=== PATIENT | female | born 1965 | race Native Hawaiian/Other Pacific Islander ===

== ENCOUNTER 2016-07-18 14:26 | Emergency (ER) | payer MEDICAID ==
[2016-07-18 14:37] VITALS: BP 132/78; PULSE 95; RESP 16; TEMP 97.4; O2SAT 100
--- NOTE | 2016-07-18 14:55 | ED PDOC ---
HPI: Female Pain Time Seen by Provider: 07/18/16 14:44 Chief Complaint (Nursing): Female Genitourinary History Per: Patient (states having burning with urination. states that she was here 2 weeks ago (confirmed by review of records) and was prescribed antibiotics which she says she still has. Patient states that she has been taking little bits of that prescription and this is the reason why she still has some pills left.) History/Exam Limitations: no limitations Past Medical History Reviewed: Historical Data, Nursing Documentation, Vital Signs Vital Signs: Last Vital Signs Temp 97.4 F L 07/18/16 14:31 Pulse 95 H 07/18/16 14:31 Resp 16 07/18/16 14:31 BP 132/78 07/18/16 14:31 Pulse Ox 100 07/18/16 14:31 - Medical History PMH: Depression, Personality Disorder, Schizophrenia Denies: Diabetes, Hepatitis, HIV, HTN, Seizures, Sexually Transmitted Disease - Family History Family History: States: Unknown Family Hx - Immunization History Hx Tetanus Toxoid Vaccination: No Hx Influenza Vaccination: No Hx Pneumococcal Vaccination: No - Home Medications Home Medications: Ambulatory Orders Medication Instructions Recorded Nitrofurantoin Macrocrystals 100 mg PO BID #6 cap 09/08/15 [Macrobid] Brompheniramine/Pseudoephed/Dm 10 ml PO Q6 #1 syr 09/09/15 [Bromfed Dm Cough 118 ml] Cephalexin [cephalexin] 500 mg PO BID #14 cap 12/20/15 Phenazopyridine HCl [Pyridium] 100 mg PO TID #6 tab 06/25/16 Sulfamethoxazole/Trimethoprim 1 tab PO BID 5 Days 06/25/16 [Bactrim DS 800 mg-160 mg] Phenazopyridine HCl [Pyridium] 100 mg PO TID #9 tab 07/18/16 - Allergies Allergies/Adverse Reactions: Allergies Allergy/AdvReac Type Severity Reaction Status Date / Time ciprofloxacin Allergy ITCHING Verified 06/25/16 16:41 Review of Systems ROS Statement: Except As Marked, All Systems Reviewed And Found Negative Constitutional: Negative for: Fever, Chills Gastrointestinal: Negative for: Nausea, Vomiting, Abdominal Pain Genitourinary Female: Positive for: Dysuria Musculoskeletal: Negative for: Back Pain Physical Exam - Reviewed Nursing Documentation Reviewed: Yes Vital Signs Reviewed: Yes - Physical Exam Appears: Positive for: Well, Non-toxic, No Acute Distress Head Exam: Positive for: ATRAUMATIC, NORMAL INSPECTION, NORMOCEPHALIC Skin: Positive for: Normal Color, Warm, DRY Eye Exam: Positive for: EOMI, Normal appearance, PERRL ENT: Positive for: Normal ENT Inspection Neck: Positive for: Normal, Painless ROM Cardiovascular/Chest: Positive for: Regular Rate, Rhythm Respiratory: Positive for: CNT, Normal Breath Sounds Gastrointestinal/Abdominal: Positive for: Normal Exam, Bowel Sounds, Soft Back: Positive for: Normal Inspection. Negative for: L CVA Tenderness, R CVA Tenderness Extremity: Positive for: Normal ROM Neurologic/Psych: Positive for: Alert, Oriented - ECG O2 Sat by Pulse Oximetry: 100 Disposition - Clinical Impression Clinical Impression: Dysuria - Patient ED Disposition Is Patient to be Admitted: No Doctor Will See Patient In The: Office Counseled Patient/Family Regarding: Diagnosis, Need For Followup, Rx Given - Disposition Referrals: [facility] [Outside] [facility] [Outside] [facility] [Outside] Disposition: Routine/Home Disposition Time: 15:33 Condition: STABLE Prescriptions: Phenazopyridine HCl [Pyridium] 100 mg PO TID #9 tab Instructions: Dysuria (ED) - POA Present On Arrival: None
[2016-07-18 16:00] LABS: RBC URINE 18 /hpf (0-3); URINE BILIRUBIN NEGATIVE (NEGATIVE); URINE BLOOD MODERATE (NEGATIVE); URINE COLOR YELLOW (YELLOW); URINE GLUCOSE (UA) NEG (Normal); URINE KETONE NEGATIVE (NEGATIVE); URINE LEUKOCYTE ESTERASE NEG Leu/uL (Negative); URINE PROTEIN NEGATIVE (NEGATIVE); URINE UROBILINOGEN 0.2-1.0 mg/dL (0.2-1.0); WBC URINE 1 /hpf (0-5)
== END 2016-07-18 15:53 | disposition home or self-care (01) ==
LOC: H.ER 14:26
DX: N39.0 Urinary tract infection, site not specified (principal)

== ENCOUNTER 2016-08-20 09:12 | Emergency (ER) | payer MEDICAID ==
[2016-08-20 09:21] VITALS: BP 144/86; PULSE 92; RESP 19; TEMP 98.5; O2SAT 99
--- NOTE | 2016-08-20 09:37 | ED PDOC ---
HPI: General Adult Time Seen by Provider: 08/20/16 09:30 Chief Complaint (Nursing): Female Genitourinary Chief Complaint (Provider): dysuria History Per: Patient History/Exam Limitations: no limitations Additional Complaint(s): 51yo female Hx UTI comes to the ED complaining of dysuria for 3 days. No abdominal pain, back pain, chills, cough, congestion, rash. Admits she's been here many times for this complaint and has not followed up with [facility] or our clinic for further care after previous ED visits. PMD: none Past Medical History Reviewed: Historical Data, Nursing Documentation, Vital Signs Vital Signs: Last Vital Signs Temp 98.5 F 08/20/16 09:20 Pulse 92 H 08/20/16 09:20 Resp 19 08/20/16 09:20 BP 144/86 08/20/16 09:20 Pulse Ox 99 08/20/16 09:43 - Medical History PMH: Depression, Personality Disorder, Schizophrenia Denies: Diabetes, Hepatitis, HIV, HTN, Seizures, Sexually Transmitted Disease Other PMH: UTI - Family History Family History: States: Unknown Family Hx - Immunization History Hx Tetanus Toxoid Vaccination: No Hx Influenza Vaccination: No Hx Pneumococcal Vaccination: No - Home Medications Home Medications: Ambulatory Orders Medication Instructions Recorded Nitrofurantoin Macrocrystals 100 mg PO BID #6 cap 09/08/15 [Macrobid] Brompheniramine/Pseudoephed/Dm 10 ml PO Q6 #1 syr 09/09/15 [Bromfed Dm Cough 118 ml] Cephalexin [cephalexin] 500 mg PO BID #14 cap 12/20/15 Phenazopyridine HCl [Pyridium] 100 mg PO TID #6 tab 06/25/16 Sulfamethoxazole/Trimethoprim 1 tab PO BID 5 Days 06/25/16 [Bactrim DS 800 mg-160 mg] Phenazopyridine HCl [Pyridium] 100 mg PO TID #9 tab 07/18/16 - Allergies Allergies/Adverse Reactions: Allergies Allergy/AdvReac Type Severity Reaction Status Date / Time ciprofloxacin Allergy ITCHING Verified 08/20/16 09:25 Review of Systems ROS Statement: Except As Marked, All Systems Reviewed And Found Negative Constitutional: Negative for: Fever, Chills ENT: Negative for: Nose Congestion Respiratory: Negative for: Cough Genitourinary Female: Positive for: Dysuria. Negative for: Hematuria Musculoskeletal: Negative for: Back Pain Skin: Negative for: Rash Physical Exam - Reviewed Nursing Documentation Reviewed: Yes Vital Signs Reviewed: Yes - Physical Exam Appears: Positive for: Well, Non-toxic, No Acute Distress Head Exam: Positive for: ATRAUMATIC, NORMAL INSPECTION, NORMOCEPHALIC Skin: Positive for: Warm, Dry Eye Exam: Positive for: EOMI, PERRL Cardiovascular/Chest: Positive for: Regular Rate, Rhythm Respiratory: Positive for: Normal Breath Sounds. Negative for: Rales, Rhonchi, Wheezing Gastrointestinal/Abdominal: Positive for: Normal Exam, Bowel Sounds, Soft. Negative for: Tenderness Back: Negative for: L CVA Tenderness, R CVA Tenderness Extremity: Positive for: Normal ROM - ECG O2 Sat by Pulse Oximetry: 99 (RA) Pulse Ox Interpretation: Normal Medical Decision Making Medical Decision Makin uncomplicated UTI, cystitis. Urine culture was sent. referred patient to PMD for outpatient care. Disposition - Clinical Impression Clinical Impression: UTI (urinary tract infection) - Patient ED Disposition Is Patient to be Admitted: No Doctor Will See Patient In The: Office Counseled Patient/Family Regarding: Studies Performed, Diagnosis, Need For Followup - Disposition Referrals: [facility] [Outside] Disposition: Routine/Home Disposition Time: 10:15 Condition: GOOD Additional Instructions: Follow up wiht your PCP in 2-3 days for referral to urology. Instructions: Urinary Tract Infection in Women (DC) Additional Comments - Additional Comments Additional Comments: Scribe Attestation: Documented by Grady Gore acting as a scribe for Royer Rendon MD. Provider Scribe Attestation: All medical record entries made by the Scribe were at my direction and personally dictated by me. I have reviewed the chart and agree that the record accurately reflects my personal performance of the history, physical exam, medical decision making, and the department course for this patient. I have also personally directed, reviewed, and agree with the discharge instructions and disposition.
== END 2016-08-20 11:11 | disposition home or self-care (01) ==
LOC: H.ER 09:12
DX: N39.0 Urinary tract infection, site not specified (principal); F20.9 Schizophrenia, unspecified; F32.9 Major depressive disorder, single episode, unspecified; R10.9 Unspecified abdominal pain

== ENCOUNTER 2016-08-30 08:57 | Emergency (ER) | payer MEDICAID | END 2016-08-30 10:00 | disposition home or self-care (01) | LOC: H.EDERROR 08:57 → H.ER 08:57 → H.EDERROR 10:00 | DX: N39.0 Urinary tract infection, site not specified (principal) ==

== ENCOUNTER 2016-09-08 14:11 | Emergency (ER) | payer MEDICAID ==
[2016-09-08 14:44] VITALS: BP 129/68; PULSE 80; RESP 20; TEMP 98.4; O2SAT 98
--- NOTE | 2016-09-08 15:23 | ED PDOC ---
HPI: General Adult Time Seen by Provider: 09/08/16 14:39 Chief Complaint (Nursing): Abdominal Pain History Per: Patient Additional Complaint(s): Pt. states for the past day she's had dysuria and frequency. Reports a hx of frequent UTIs. Denies back pain, flank pain, fever, abdominal pain, N/V, incontinence. Past Medical History Reviewed: Historical Data, Nursing Documentation, Vital Signs Vital Signs: Last Vital Signs Temp 98.4 F 09/08/16 14:37 Pulse 80 09/08/16 14:37 Resp 20 09/08/16 14:37 BP 129/68 09/08/16 14:37 Pulse Ox 98 09/08/16 14:37 - Medical History PMH: Depression, Personality Disorder, Schizophrenia Denies: Diabetes, Hepatitis, HIV, HTN, Seizures, Sexually Transmitted Disease - Family History Family History: States: No Known Family Hx - Immunization History Hx Tetanus Toxoid Vaccination: No Hx Influenza Vaccination: No Hx Pneumococcal Vaccination: No - Home Medications Home Medications: Ambulatory Orders Medication Instructions Recorded Nitrofurantoin Macrocrystals 100 mg PO BID #6 cap 09/08/15 [Macrobid] Brompheniramine/Pseudoephed/Dm 10 ml PO Q6 #1 syr 09/09/15 [Bromfed Dm Cough 118 ml] Cephalexin [cephalexin] 500 mg PO BID #14 cap 12/20/15 Phenazopyridine HCl [Pyridium] 100 mg PO TID #6 tab 06/25/16 Sulfamethoxazole/Trimethoprim 1 tab PO BID 5 Days 06/25/16 [Bactrim DS 800 mg-160 mg] Phenazopyridine HCl [Pyridium] 100 mg PO TID #9 tab 07/18/16 Nitrofurantoin Macrocrystals 100 mg PO BID #14 cap 08/20/16 [Macrobid] Nitrofurantoin Macrocrystals 100 mg PO BID #14 cap 09/08/16 [Macrobid] Phenazopyridine [Pyridium] 100 mg PO BID #6 tab 09/08/16 - Allergies Allergies/Adverse Reactions: Allergies Allergy/AdvReac Type Severity Reaction Status Date / Time ciprofloxacin Allergy ITCHING Verified 09/08/16 14:37 Review of Systems ROS Statement: Except As Marked, All Systems Reviewed And Found Negative Genitourinary Female: Positive for: Dysuria, Frequency Physical Exam - Physical Exam Appears: Positive for: Well, Non-toxic, No Acute Distress Skin: Positive for: Normal Color, Warm. Negative for: Rash Gastrointestinal/Abdominal: Positive for: Normal Exam, Soft. Negative for: Tenderness Back: Positive for: Normal Inspection. Negative for: L CVA Tenderness, R CVA Tenderness - Laboratory Results Urine POC: Negative Urine dip results: Positive for: Leukocyte Esterase (moderate ). Negative for: Blood, Nitrate, Ketones, Glucose, Bilirubin, Protein - ECG O2 Sat by Pulse Oximetry: 98 Disposition - Clinical Impression Clinical Impression: UTI (urinary tract infection) - Patient ED Disposition Is Patient to be Admitted: No - Disposition Referrals: [facility] [Outside] Disposition: Routine/Home Disposition Time: 15:27 Condition: STABLE Prescriptions: Nitrofurantoin Macrocrystals [Macrobid] 100 mg PO BID #14 cap Phenazopyridine [Pyridium] 100 mg PO BID #6 tab Instructions: Urinary Tract Infection in Women (ED) Print Language: LIBERIAN
== END 2016-09-08 15:55 | disposition short-term general hospital (02) ==
LOC: H.ER 14:11
DX: N39.0 Urinary tract infection, site not specified (principal); F20.9 Schizophrenia, unspecified; F32.9 Major depressive disorder, single episode, unspecified

== ENCOUNTER 2016-09-25 07:16 | Emergency (ER) | payer MEDICAID ==
[2016-09-25 07:34] VITALS: BP 119/68; PULSE 90; RESP 19; TEMP 98.6; O2SAT 98
[2016-09-25 09:22] LABS: RBC URINE 3 /hpf (0-3); URINE BACTERIA RARE (<OCC); URINE BILIRUBIN NEGATIVE (NEGATIVE); URINE BLOOD NEGATIVE (NEGATIVE); URINE COLOR YELLOW (YELLOW); URINE GLUCOSE (UA) NEG (Normal); URINE KETONE NEGATIVE (NEGATIVE); URINE LEUKOCYTE ESTERASE NEG Leu/uL (Negative); URINE PROTEIN NEGATIVE (NEGATIVE); URINE UROBILINOGEN 0.2-1.0 mg/dL (0.2-1.0); WBC URINE 3 /hpf (0-5)
--- NOTE | 2016-09-25 09:48 | ED PDOC ---
HPI: Female Pain Time Seen by Provider: 09/25/16 08:03 Chief Complaint (Nursing): Female Genitourinary Chief Complaint (Provider): dysuria History Per: Patient History/Exam Limitations: no limitations Onset/Duration Of Symptoms: Unknown Additional Complaint(s): Johana Myers is a 51 year old female, with no previous medical history, who presents to the ED for dysuria and prescription antibiotics for her UTI secondary to loosing her original prescription. Patient is unsure when prescription was written. she denies any fever, chills, hematuria, abdominal pain or flank pain. PMD: none provided Abnormal Vaginal Bleeding: No Past Medical History Vital Signs: Last Vital Signs Temp 98.6 F 09/25/16 09:44 Pulse 90 09/25/16 07:33 Resp 19 09/25/16 07:33 BP 119/68 09/25/16 07:33 Pulse Ox 98 09/25/16 07:33 - Medical History PMH: Depression, Personality Disorder, Schizophrenia Denies: Diabetes, Hepatitis, HIV, HTN, Seizures, Sexually Transmitted Disease - Immunization History Hx Tetanus Toxoid Vaccination: No Hx Influenza Vaccination: No Hx Pneumococcal Vaccination: No - Home Medications Home Medications: Ambulatory Orders Medication Instructions Recorded Brompheniramine/Pseudoephed/Dm 10 ml PO Q6 #1 syr 09/09/15 [Bromfed Dm Cough 118 ml] Cephalexin [cephalexin] 500 mg PO BID #14 cap 12/20/15 Sulfamethoxazole/Trimethoprim 1 tab PO BID 5 Days 06/25/16 [Bactrim DS 800 mg-160 mg] Phenazopyridine [Pyridium] 100 mg PO BID #6 tab 09/08/16 Naproxen [Naprosyn] 500 mg PO BID PRN #15 tablet 09/25/16 - Allergies Allergies/Adverse Reactions: Allergies Allergy/AdvReac Type Severity Reaction Status Date / Time ciprofloxacin Allergy ITCHING Verified 09/25/16 07:44 Review of Systems ROS Statement: Except As Marked, All Systems Reviewed And Found Negative Constitutional: Negative for: Fever, Chills Gastrointestinal: Negative for: Abdominal Pain Genitourinary Female: Positive for: Dysuria. Negative for: Hematuria, Pelvic Pain Physical Exam - Reviewed Nursing Documentation Reviewed: Yes Vital Signs Reviewed: Yes - Physical Exam Appears: Positive for: Well, Non-toxic, No Acute Distress Head Exam: Positive for: ATRAUMATIC, NORMAL INSPECTION, NORMOCEPHALIC Skin: Positive for: Normal Color, Warm, Dry Cardiovascular/Chest: Positive for: Regular Rate, Rhythm Respiratory: Positive for: CNT, Normal Breath Sounds Gastrointestinal/Abdominal: Positive for: Normal Exam, Bowel Sounds, Soft. Negative for: Tenderness Extremity: Positive for: Normal ROM Neurologic/Psych: Positive for: Alert, Oriented - ECG O2 Sat by Pulse Oximetry: 98 (RA) Pulse Ox Interpretation: Normal Medical Decision Making Medical Decision Making: Initial Impression: dysuria, prescription refill Initial Plan: * urine dipstick * urinalysis * urine culture * urine * reevaluation Scribe Attestation: Documented by Joana Brambila, acting as a scribe for Joana Ennis MD. Provider Scribe Attestation: All medical record entries made by the Scribe were at my direction and personally dictated by me. I have reviewed the chart and agree that the record accurately reflects my personal performance of the history, physical exam, medical decision making, and the department course for this patient. I have also personally directed, reviewed, and agree with the discharge instructions and disposition. Disposition - Clinical Impression Clinical Impression: Dysuria - Disposition Referrals: [facility] [Outside] Condition: STABLE Prescriptions: Naproxen [Naprosyn] 500 mg PO BID PRN #15 tablet PRN Reason: Pain, Moderate (4-7) Instructions: Dysuria (ED)
== END 2016-09-25 09:46 | disposition home or self-care (01) ==
LOC: H.ER 07:16
DX: R30.0 Dysuria (principal)

== ENCOUNTER 2016-10-03 16:37 | Emergency (ER) | payer MEDICAID ==
[2016-10-03 16:52] VITALS: BP 128/88; PULSE 88; RESP 16; TEMP 98.5; O2SAT 100
--- NOTE | 2016-10-03 20:13 | ED PDOC ---
HPI: Abdomen Time Seen by Provider: 10/03/16 19:24 Chief Complaint (Nursing): Abdominal Pain Chief Complaint (Provider): dysuria History Per: Patient History/Exam Limitations: no limitations Onset/Duration Of Symptoms: Intermittent Episodes (xseveral days) Current Symptoms Are (Timing): Still Present Additional Complaint(s): Johana Myers is a 51 year old female with previous medical history of a proteus infection, who presents to the emergency department with a complaint of painful urination associated with lower abdominal discomfort ongoing intermittedly for a few days. Denies any fevers, chills, or back pain. Of note, old chart was reviewed of prior visits, dating back 2 months, showed patient came in for treatments of similar symptoms of dysuria. Infection has been known to be resistant to all oral antibiotics including Keflex and Bactrim that has been prescribed to patient in the past, showing no improvements. Patient also refused a mandarian assistant merchandise manager, stating that she fully understands Romansh and can provide answers herself. PMD: none provided Past Medical History Reviewed: Historical Data, Nursing Documentation, Vital Signs Vital Signs: Last Vital Signs Temp 98.5 F 10/03/16 16:46 Pulse 88 10/03/16 16:46 Resp 16 10/03/16 16:46 BP 128/88 10/03/16 16:46 Pulse Ox 100 10/03/16 21:33 - Medical History PMH: Depression, Personality Disorder, Schizophrenia Denies: Diabetes, Hepatitis, HIV, HTN, Seizures, Sexually Transmitted Disease - Family History Family History: States: Unknown Family Hx - Social History Current smoker - smoking cessation education provided: No Alcohol: None Drugs: Denies - Immunization History Hx Tetanus Toxoid Vaccination: No Hx Influenza Vaccination: No Hx Pneumococcal Vaccination: No - Home Medications Home Medications: Ambulatory Orders Medication Instructions Recorded Brompheniramine/Pseudoephed/Dm 10 ml PO Q6 #1 syr 09/09/15 [Bromfed Dm Cough 118 ml] Cephalexin [cephalexin] 500 mg PO BID #14 cap 12/20/15 Sulfamethoxazole/Trimethoprim 1 tab PO BID 5 Days 06/25/16 [Bactrim DS 800 mg-160 mg] Phenazopyridine [Pyridium] 100 mg PO BID #6 tab 09/08/16 Naproxen [Naprosyn] 500 mg PO BID PRN #15 tablet 09/25/16 Ibuprofen [Motrin Tab] 600 mg PO Q6 PRN #15 tab 10/03/16 Permethrin 5% [Permethrin] 1 appful TP ONCE #1 tube 10/03/16 Phenazopyridine HCl [Pyridium] 100 mg PO BID #10 tablet 10/03/16 - Allergies Allergies/Adverse Reactions: Allergies Allergy/AdvReac Type Severity Reaction Status Date / Time ciprofloxacin Allergy ITCHING Verified 09/25/16 07:44 Review of Systems ROS Statement: Except As Marked, All Systems Reviewed And Found Negative Constitutional: Negative for: Fever, Chills Gastrointestinal: Positive for: Abdominal Pain (lower abdomen) Genitourinary Female: Positive for: Dysuria Musculoskeletal: Negative for: Back Pain Physical Exam - Reviewed Nursing Documentation Reviewed: Yes Vital Signs Reviewed: Yes - Physical Exam Appears: Positive for: Well, Non-toxic, No Acute Distress Skin: Positive for: Warm, Dry, Rash (diffuse rash to abdomen with excoriation, likely consistent with scabies) Neck: Positive for: Normal, Painless ROM, Supple Cardiovascular/Chest: Positive for: Regular Rate, Rhythm. Negative for: Murmur Respiratory: Positive for: Normal Breath Sounds. Negative for: Crackles, Rales , Rhonchi, Wheezing Gastrointestinal/Abdominal: Positive for: Normal Exam, Bowel Sounds, Soft. Negative for: Tenderness Back: Positive for: Normal Inspection. Negative for: L CVA Tenderness, R CVA Tenderness Extremity: Positive for: Normal ROM Neurologic/Psych: Positive for: Alert, Oriented - ECG O2 Sat by Pulse Oximetry: 100 (RA) Pulse Ox Interpretation: Normal Medical Decision Making Medical Decision Making: Initial Impression: Dysuria; Lower abdominal pain Initial Plan: * Labs * Urine dipstick * Urine * Urine culture * Urinalysis * Reevaluate --Urine dip shows finding of trace leukocytes and blood UCx prior reveals Proteus resistant to PO Abx. Needs IV Abx but patient refusing bloodwork and IV Abx. Wants PO ABx. Explained likely unhelpful as proteus organism is resistant. Possible contaminant but patient adamant on trying PO Abx. Trial offered and pt to sign AMA. Risks of worsening resistance discussed. Pt offered mandarin assistant merchandise manager but states understands indonesian fluently. This patient is choosing to leave against medical advice. The EP has personally explained to the patient that choosing to do so may result in permanent bodily harm or . The EP discussed at great length that without further evaluation and monitoring there may be unforeseen circumstances and/or deterioration causing permanent bodily harm or as a result of their choice. The patient verbalized these risks back to the physician in laymans terms. The patient is alert, oriented, and shows the mental capacity to make clear decisions regarding the patients health care at this time. The patient continues to wish to leave against medical advice. In light of the patients decision to leave AMA, follow-up has been arranged and the patient is aware of the importance of following up as instructed. The patient has been advised that they should return to the ED immediately if they change their mind at any time, or if their condition begins to change or worsen in any way. Clinical Impression: Recurrent UTI; Scabies Scribe Attestation: Documented by Susan Boogie, acting as a scribe for Td Aguirre MD. Provider Scribe Attestation: All medical record entries made by the Scribe were at my direction and personally dictated by me. I have reviewed the chart and agree that the record accurately reflects my personal performance of the history, physical exam, medical decision making, and the department course for this patient. I have also personally directed, reviewed, and agree with the discharge instructions and disposition. Disposition - Clinical Impression Clinical Impression: UTI (urinary tract infection), Rash - Patient ED Disposition Is Patient to be Admitted: No Doctor Will See Patient In The: Office Counseled Patient/Family Regarding: Studies Performed, Diagnosis, Need For Followup, Rx Given - Disposition Referrals: Bernard Luis MD [Staff Provider] - Disposition: Against Medical Advice Disposition Time: 20:05 Condition: STABLE Additional Instructions: You left hospital Against medical advice. IV antibiotics are recommended for your urine infection, oral antibiotics may not be effective based on the type of infection present in your urine on culture from your last visit. Please see specialist for further testing. Prescriptions: Ibuprofen [Motrin Tab] 600 mg PO Q6 PRN #15 tab PRN Reason: Pain, Moderate (4-7) Permethrin 5% [Permethrin] 1 appful TP ONCE #1 tube Phenazopyridine HCl [Pyridium] 100 mg PO BID #10 tablet Instructions: Urinary Tract Infection in Women (ED), Scabies (ED), Against Medical Advice (ED)
[2016-10-03 20:14] LABS: RBC URINE 1367 /hpf (0-3); URINE BILIRUBIN NEGATIVE (NEGATIVE); URINE BLOOD LARGE (NEGATIVE); URINE COLOR YELLOW (YELLOW); URINE GLUCOSE (UA) NEG (Normal); URINE KETONE NEGATIVE (NEGATIVE); URINE LEUKOCYTE ESTERASE TRACE Leu/uL (Negative); URINE PROTEIN 30 mg/dL (NEGATIVE); URINE UROBILINOGEN 0.2-1.0 mg/dL (0.2-1.0); WBC URINE 11 /hpf (0-5)
== END 2016-10-03 21:00 | disposition home or self-care (01) ==
LOC: H.ER 16:37
DX: N39.0 Urinary tract infection, site not specified (principal); B86 Scabies; F20.9 Schizophrenia, unspecified; F32.9 Major depressive disorder, single episode, unspecified

== ENCOUNTER 2017-01-01 10:42 | Emergency (ER) | payer MEDICAID ==
[2017-01-01 10:48] VITALS: BP 116/69; PULSE 88; RESP 20; TEMP 98.6; O2SAT 97
--- NOTE | 2017-01-01 11:40 | ED PDOC ---
HPI: Female Pain Time Seen by Provider: 01/01/17 11:03 Chief Complaint (Nursing): Female Genitourinary Chief Complaint (Provider): dysuria History Per: Patient History/Exam Limitations: no limitations Onset/Duration Of Symptoms: Days (x 1) Additional Complaint(s): Johana Myers is a 51 year old female, with a history of recurring UTI, who presents to the ED for evaluation of dysuria ongoing for 1 day. she denies any hematuria , fever, chills, flank pain or abdominal pain. Patient also reports pain to the right jaw. PMD: none provided Past Medical History Reviewed: Historical Data, Nursing Documentation, Vital Signs Vital Signs: Last Vital Signs Temp 98.6 F 01/01/17 10:47 Pulse 88 01/01/17 10:47 Resp 20 01/01/17 10:47 BP 116/69 01/01/17 10:47 Pulse Ox 97 01/01/17 10:47 - Medical History PMH: Depression, Personality Disorder, Schizophrenia Denies: Diabetes, Hepatitis, HIV, HTN, Seizures, Sexually Transmitted Disease - Surgical History Surgical History: No Surg Hx - Family History Family History: States: Unknown Family Hx - Immunization History Hx Tetanus Toxoid Vaccination: No Hx Influenza Vaccination: No Hx Pneumococcal Vaccination: No - Home Medications Home Medications: Ambulatory Orders Medication Instructions Recorded Brompheniramine/Pseudoephed/Dm 10 ml PO Q6 #1 syr 09/09/15 [Bromfed Dm Cough 118 ml] Sulfamethoxazole/Trimethoprim 1 tab PO BID 5 Days tab 06/25/16 [Bactrim DS 800 mg-160 mg] Phenazopyridine [Pyridium] 100 mg PO BID #6 tab 09/08/16 Naproxen [Naprosyn] 500 mg PO BID PRN #15 tablet 09/25/16 Ibuprofen [Motrin Tab] 600 mg PO Q6 PRN #15 tab 10/03/16 Permethrin 5% [Permethrin] 1 appful TP ONCE #1 tube 10/03/16 Phenazopyridine HCl [Pyridium] 100 mg PO BID #10 tablet 10/03/16 Cephalexin [cephalexin] 500 mg PO BID #14 cap 01/01/17 - Allergies Allergies/Adverse Reactions: Allergies Allergy/AdvReac Type Severity Reaction Status Date / Time ciprofloxacin Allergy ITCHING Verified 09/25/16 07:44 Review of Systems ROS Statement: Except As Marked, All Systems Reviewed And Found Negative Constitutional: Negative for: Fever, Chills ENT: Positive for: Other (dental sick ) Gastrointestinal: Negative for: Nausea, Vomiting, Abdominal Pain Genitourinary Female: Positive for: Dysuria. Negative for: Frequency, Hematuria Physical Exam - Reviewed Nursing Documentation Reviewed: Yes Vital Signs Reviewed: Yes - Physical Exam Appears: Positive for: Well, Non-toxic, No Acute Distress Head Exam: Positive for: ATRAUMATIC, NORMAL INSPECTION, NORMOCEPHALIC Skin: Positive for: Normal Color, Warm, DRY Eye Exam: Positive for: EOMI, Normal appearance, PERRL ENT: Positive for: Other (mild tenderness to the right lower jaw by 1st molar ) Neck: Positive for: Normal, Painless ROM Cardiovascular/Chest: Positive for: Regular Rate, Rhythm Respiratory: Positive for: CNT, Normal Breath Sounds Gastrointestinal/Abdominal: Positive for: Normal Exam, Bowel Sounds, Soft Back: Positive for: Normal Inspection Extremity: Positive for: Normal ROM Neurologic/Psych: Positive for: Alert, Oriented - ECG O2 Sat by Pulse Oximetry: 97 (RA) Pulse Ox Interpretation: Normal Medical Decision Making Medical Decision Making: Initial Impression: toothache and dysuria Initial Plan: * urine dipstick * urine culture * reevaluation --------- Scribe Attestation: Documented by Joana Brambila, acting as a scribe for Royer Rendon MD. Provider Scribe Attestation: All medical record entries made by the Scribe were at my direction and personally dictated by me. I have reviewed the chart and agree that the record accurately reflects my personal performance of the history, physical exam, medical decision making, and the department course for this patient. I have also personally directed, reviewed, and agree with the discharge instructions and disposition Disposition - Clinical Impression Clinical Impression: Chronic urinary tract infection, Toothache - Patient ED Disposition Is Patient to be Admitted: No Doctor Will See Patient In The: Office Counseled Patient/Family Regarding: Studies Performed, Diagnosis, Need For Followup - Disposition Referrals: [facility] [Outside] Disposition: Routine/Home Disposition Time: 12:00 Condition: GOOD Additional Instructions: Follow up with your PCP and dentist in 3 days. Prescriptions: Cephalexin [cephalexin] 500 mg PO BID #14 cap Instructions: Urinary Tract Infection in Women (ED), Toothache (ED)
== END 2017-01-01 12:07 | disposition home or self-care (01) ==
LOC: H.ER 10:42
DX: N39.0 Urinary tract infection, site not specified (principal); Z86.59 Personal history of other mental and behavioral disorders; K08.89 Other specified disorders of teeth and supporting structures; Z87.440 Personal history of urinary (tract) infections

== ENCOUNTER 2017-02-01 09:38 | Emergency (ER) | payer MEDICAID ==
[2017-02-01 10:05] VITALS: BP 119/78; PULSE 72; RESP 19; TEMP 98.1; O2SAT 100
--- NOTE | 2017-02-01 10:11 | ED PDOC ---
HPI: Female Pain Time Seen by Provider: 02/01/17 09:50 Chief Complaint (Nursing): Female Genitourinary Chief Complaint (Provider): Dysuria History Per: Patient History/Exam Limitations: no limitations Onset/Duration Of Symptoms: Days (yesterday) Current Symptoms Are (Timing): Still Present Additional History Per: Patient Additional Complaint(s): Pt. with pain on urination, bloody urine. States has had same 10 times. No abd pain, back pain, dyspnea, fever, cough, runny nose, chest pain. No fever. Past Medical History Vital Signs: Last Vital Signs Temp 98.1 F 02/01/17 10:00 Pulse 72 02/01/17 10:00 Resp 19 02/01/17 10:00 BP 119/78 02/01/17 10:00 Pulse Ox 100 02/01/17 10:00 - Medical History PMH: Depression, Personality Disorder, Schizophrenia Denies: Diabetes, Hepatitis, HIV, HTN, Seizures, Sexually Transmitted Disease Other PMH: uti - Surgical History Surgical History: No Surg Hx - Family History Family History: States: Unknown Family Hx - Living Arrangements Living Arrangements: With Family - Social History Alcohol: None Drugs: Denies - Immunization History Hx Tetanus Toxoid Vaccination: No Hx Influenza Vaccination: No Hx Pneumococcal Vaccination: No - Home Medications Home Medications: Ambulatory Orders Medication Instructions Recorded Brompheniramine/Pseudoephed/Dm 10 ml PO Q6 #1 syr 09/09/15 [Bromfed Dm Cough 118 ml] Sulfamethoxazole/Trimethoprim 1 tab PO BID 5 Days tab 06/25/16 [Bactrim DS 800 mg-160 mg] Phenazopyridine [Pyridium] 100 mg PO BID #6 tab 09/08/16 Naproxen [Naprosyn] 500 mg PO BID PRN #15 tablet 09/25/16 Ibuprofen [Motrin Tab] 600 mg PO Q6 PRN #15 tab 10/03/16 Permethrin 5% [Permethrin] 1 appful TP ONCE #1 tube 10/03/16 Phenazopyridine HCl [Pyridium] 100 mg PO BID #10 tablet 10/03/16 Cephalexin [cephalexin] 500 mg PO BID #14 cap 01/01/17 Nitrofurantoin Macrocrystals 100 mg PO BID #10 cap 02/01/17 [Macrobid] - Allergies Allergies/Adverse Reactions: Allergies Allergy/AdvReac Type Severity Reaction Status Date / Time ciprofloxacin Allergy ITCHING Verified 09/25/16 07:44 Review of Systems ROS Statement: Except As Marked, All Systems Reviewed And Found Negative Genitourinary Female: Positive for: Dysuria Physical Exam - Reviewed Nursing Documentation Reviewed: Yes Vital Signs Reviewed: Yes - Physical Exam Appears: Positive for: Non-toxic, No Acute Distress Head Exam: Positive for: ATRAUMATIC, NORMAL INSPECTION, NORMOCEPHALIC Skin: Positive for: Normal Color, Warm, DRY Eye Exam: Positive for: EOMI, Normal appearance, PERRL ENT: Positive for: Normal ENT Inspection Neck: Positive for: Normal, Painless ROM Cardiovascular/Chest: Positive for: Regular Rate, Rhythm Respiratory: Positive for: CNT, Normal Breath Sounds Gastrointestinal/Abdominal: Positive for: Normal Exam, Bowel Sounds, Soft. Negative for: Tenderness Back: Positive for: Normal Inspection. Negative for: L CVA Tenderness, R CVA Tenderness Extremity: Positive for: Normal ROM. Negative for: Tenderness Neurologic/Psych: Positive for: Alert, Oriented - Laboratory Results Urine dip results: Negative for: Leukocyte Esterase, Nitrate - ECG O2 Sat by Pulse Oximetry: 100 - Progress ED Course And Treament: 1018: Multiple ER visits for the same. Seen here recently and rx with keflex for toothache and possible uti. Will rx macrobid. Pt. had Proteus in the past and refused admit for tx. Pt. no leuk or nit. Unclear if she took the keflex. Fu with clinic. Does not want any further workup done. Refused to get into gown to get proper evaluation. Disposition - Clinical Impression Clinical Impression: UTI (urinary tract infection) Counseled Patient/Family Regarding: Studies Performed, Diagnosis, Need For Followup, Rx Given - Disposition Referrals: [facility] [Outside] - 02/04/17 Disposition: Routine/Home Disposition Time: 10:20 Condition: STABLE Additional Instructions: Return if not better in 3 days. Prescriptions: Nitrofurantoin Macrocrystals [Macrobid] 100 mg PO BID #10 cap Instructions: Urinary Tract Infection in Women (ED)
== END 2017-02-01 10:30 | disposition home or self-care (01) ==
LOC: SUPCPDRO 09:38 → H.ER 09:38
DX: N39.0 Urinary tract infection, site not specified (principal); F20.9 Schizophrenia, unspecified; F32.9 Major depressive disorder, single episode, unspecified

== ENCOUNTER 2017-05-03 13:16 | Emergency (ER) | payer MEDICAID ==
[2017-05-03 13:26] VITALS: PULSE 95; RESP 16; TEMP 98.3; O2SAT 97
[2017-05-03 14:17] LABS: SQUAMOUS EPITHIAL 1 /hpf (0-5); URINE BILIRUBIN NEGATIVE (NEGATIVE); URINE BLOOD NEGATIVE (NEGATIVE); URINE CLARITY SLIGHTY-CLOUDY (Clear); URINE COLOR YELLOW (YELLOW); URINE GLUCOSE (UA) NEG (Normal); URINE LEUKOCYTE ESTERASE NEG Leu/uL (Negative); URINE NITRATE NEGATIVE (NEGATIVE); URINE PROTEIN NEGATIVE (NEGATIVE); URINE UROBILINOGEN 0.2-1.0 mg/dL (0.2-1.0)
--- NOTE | 2017-05-03 14:53 | ED PDOC ---
HPI: Female Pain Time Seen by Provider: 05/03/17 13:16 Chief Complaint (Nursing): Female Genitourinary Chief Complaint (Provider): Female Genitourinary History Per: Patient History/Exam Limitations: no limitations Onset/Duration Of Symptoms: Days, Worse Since Current Symptoms Are (Timing): Still Present Additional Complaint(s): 51 year old female presents to the emergency department with a complaint of frequency and foul smelling urine for the past few days. Denies fever, chills, abdominal pain, back pain, nausea, or vomiting. Past Medical History Reviewed: Historical Data, Nursing Documentation, Vital Signs Vital Signs: Last Vital Signs Temp 98.3 F 05/03/17 13:23 Pulse 95 H 05/03/17 13:23 Resp 16 05/03/17 13:23 BP Pulse Ox 97 05/03/17 13:23 - Medical History PMH: Depression, Personality Disorder, Schizophrenia Denies: Diabetes, Hepatitis, HIV, HTN, Seizures, Sexually Transmitted Disease - Surgical History Surgical History: No Surg Hx - Family History Family History: States: Unknown Family Hx - Social History Current smoker - smoking cessation education provided: No Alcohol: None Drugs: Denies - Immunization History Hx Tetanus Toxoid Vaccination: No Hx Influenza Vaccination: No Hx Pneumococcal Vaccination: No - Home Medications Home Medications: Ambulatory Orders Medication Instructions Recorded Brompheniramine/Pseudoephed/Dm 10 ml PO Q6 #1 syr 09/09/15 [Bromfed Dm Cough 118 ml] Sulfamethoxazole/Trimethoprim 1 tab PO BID 5 Days tab 06/25/16 [Bactrim DS 800 mg-160 mg] Phenazopyridine [Pyridium] 100 mg PO BID #6 tab 09/08/16 Naproxen [Naprosyn] 500 mg PO BID PRN #15 tablet 09/25/16 Ibuprofen [Motrin Tab] 600 mg PO Q6 PRN #15 tab 10/03/16 Permethrin 5% [Permethrin] 1 appful TP ONCE #1 tube 10/03/16 Phenazopyridine HCl [Pyridium] 100 mg PO BID #10 tablet 10/03/16 Cephalexin [cephalexin] 500 mg PO BID #14 cap 01/01/17 Nitrofurantoin Macrocrystals 100 mg PO BID #10 cap 02/01/17 [Macrobid] Sulfamethoxazole/Trimethoprim 1 tab PO BID #20 tab 02/19/17 [Bactrim DS 800 mg-160 mg] - Allergies Allergies/Adverse Reactions: Allergies Allergy/AdvReac Type Severity Reaction Status Date / Time ciprofloxacin Allergy ITCHING Verified 02/19/17 09:17 Review of Systems ROS Statement: Except As Marked, All Systems Reviewed And Found Negative (As per HPI, otherwise negative) Constitutional: Negative for: Fever, Chills Gastrointestinal: Negative for: Nausea, Vomiting, Abdominal Pain Genitourinary Female: Positive for: Frequency (with foul smelling urine) Musculoskeletal: Negative for: Back Pain Physical Exam - Reviewed Nursing Documentation Reviewed: Yes Vital Signs Reviewed: Yes - Physical Exam Appears: Positive for: Non-toxic, No Acute Distress (ill appearing) Head Exam: Positive for: NORMAL INSPECTION, NORMOCEPHALIC Skin: Positive for: Warm, Dry, Rash (noted to the skin of the lower extremities) Cardiovascular/Chest: Positive for: Regular Rate, Rhythm. Negative for: Murmur Respiratory: Positive for: Normal Breath Sounds. Negative for: Accessory Muscle Use, Respiratory Distress Gastrointestinal/Abdominal: Positive for: Normal Exam, Soft. Negative for: Tenderness Back: Positive for: Normal Inspection. Negative for: L CVA Tenderness, R CVA Tenderness Extremity: Positive for: Normal ROM. Negative for: Pedal Edema Neurologic/Psych: Positive for: Alert, Oriented (x3) - ECG O2 Sat by Pulse Oximetry: 97 (RA) Pulse Ox Interpretation: Normal Medical Decision Making Medical Decision Making: Time: 1347 Initial impression: problem Initial plan: Urine culture AccuCheck Urinalysis Reevaluation UA (-) FS 83 Time: 1457 --Patient medically stable for discharge with urinary frequency. Advised to follow up with clinic. Advised to follow up with primary care physician in 1-2 days without fail. Return to the emergency room at any time for any new or worsening symptoms. Scribe Attestation: Documented by Gem Almeida, acting as a scribe for Lola Boland PA-C Provider Scribe Attestation: All medical record entries made by the Scribe were at my direction and personally dictated by me. I have reviewed the chart and agree that the record accurately reflects my personal performance of the history, physical exam, medical decision making, and the department course for this patient. I have also personally directed, reviewed, and agree with the discharge instructions and disposition. 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
== END 2017-05-03 15:30 | disposition home or self-care (01) ==
LOC: H.ER 13:16
DX: R35.0 Frequency of micturition (principal); F20.9 Schizophrenia, unspecified; F32.9 Major depressive disorder, single episode, unspecified; N39.0 Urinary tract infection, site not specified

== ENCOUNTER 2017-07-18 10:54 | Emergency (ER) | payer MEDICAID ==
[2017-07-18 11:11] VITALS: BP 129/82; PULSE 86; RESP 16; TEMP 97.4; O2SAT 98
--- NOTE | 2017-07-18 12:01 | ED PDOC ---
HPI: General Adult Time Seen by Provider: 07/18/17 11:45 Chief Complaint (Nursing): Female Genitourinary Chief Complaint (Provider): dysuria History Per: Patient History/Exam Limitations: no limitations Onset/Duration Of Symptoms: Days (1-2) Have you had recent travel within the past 21 days to any of the following countries: [place], [place], [place] or [place]?: No Current Symptoms Are (Timing): Still Present Severity: Moderate Location: dysuria Similar Symptoms Previously: yes Recent Trauma: no Recently: Seen In ED Additional History Per: Patient Additional Complaint(s): pt p/w + 1-2 days onset of dysuria, mild urinary frequency, no bleeding, no flank pain, no fever/chills/sweats, no cp/sob/palpitations, no abd pain, no n/v , no numbness/tingling, no vaginal changes/discharge, no vaginal bleeding, no bowel changes, no fall/trauma/sick contact, no travel occupational therapist states similar symptoms in the past pt showed me a medication bottle from last ED visit (appears to be an antibiotic that patient did not finish) pt without other complaints pt is here for further eval PCP: NONE pt is homeless? Past Medical History Reviewed: Historical Data, Nursing Documentation, Vital Signs Vital Signs: Last Vital Signs Temp 97.4 F L 07/18/17 11:05 Pulse 86 07/18/17 11:05 Resp 16 07/18/17 11:05 BP 129/82 07/18/17 11:05 Pulse Ox 98 07/18/17 13:54 - Medical History PMH: Depression, Personality Disorder, Schizophrenia Denies: Diabetes, Hepatitis, HIV, HTN, Seizures, Sexually Transmitted Disease - Family History Family History: States: Unknown Family Hx - Living Arrangements Living Arrangements: Alone - Social History Current smoker - smoking cessation education provided: No Ex-Smoker (has not smoked in the last 12 months): No Alcohol: None Drugs: Denies - Immunization History Hx Tetanus Toxoid Vaccination: No Hx Influenza Vaccination: No Hx Pneumococcal Vaccination: No - Home Medications Home Medications: Ambulatory Orders Medication Instructions Recorded Brompheniramine/Pseudoephed/Dm 10 ml PO Q6 #1 syr 09/09/15 [Bromfed Dm Cough 118 ml] Sulfamethoxazole/Trimethoprim 1 tab PO BID 5 Days tab 06/25/16 [Bactrim DS 800 mg-160 mg] Phenazopyridine [Pyridium] 100 mg PO BID #6 tab 09/08/16 Naproxen [Naprosyn] 500 mg PO BID PRN #15 tablet 09/25/16 Ibuprofen [Motrin Tab] 600 mg PO Q6 PRN #15 tab 10/03/16 Permethrin 5% [Permethrin] 1 appful TP ONCE #1 tube 10/03/16 Phenazopyridine HCl [Pyridium] 100 mg PO BID #10 tablet 10/03/16 Cephalexin [cephalexin] 500 mg PO BID #14 cap 01/01/17 Nitrofurantoin Macrocrystals 100 mg PO BID #10 cap 02/01/17 [Macrobid] Sulfamethoxazole/Trimethoprim 1 tab PO BID #20 tab 02/19/17 [Bactrim DS 800 mg-160 mg] Phenazopyridine HCl [Pyridium] 100 mg PO TID PRN #5 tablet 07/18/17 Sulfamethoxazole/Trimethoprim 1 tab PO BID #14 tab 07/18/17 [Bactrim DS 800 mg-160 mg] - Allergies Allergies/Adverse Reactions: Allergies Allergy/AdvReac Type Severity Reaction Status Date / Time ciprofloxacin Allergy ITCHING Verified 02/19/17 09:17 Review of Systems ROS Statement: Except As Marked, All Systems Reviewed And Found Negative Constitutional: Negative for: Fever, Weakness, Malaise Gastrointestinal: Negative for: Nausea, Vomiting Genitourinary Female: Positive for: Dysuria. Negative for: Hematuria, Vaginal Discharge, Vaginal Bleeding Physical Exam - Reviewed Nursing Documentation Reviewed: Yes Vital Signs Reviewed: Yes (WNL) - Physical Exam Appears: Positive for: Well, Non-toxic Head Exam: Positive for: ATRAUMATIC, NORMAL INSPECTION Skin: Positive for: Normal Color (cap refill < 1sec, no ulcerations, no petechiae) Eye Exam: Positive for: Normal appearance ENT: Positive for: Normal ENT Inspection Neck: Positive for: Normal Cardiovascular/Chest: Positive for: Regular Rate, Rhythm, Chest Non Tender. Negative for: Murmur Respiratory: Positive for: Normal Breath Sounds, Other (CTA b/l, no w/r/r, no accessory muscle use noted, no tachypenia) Gastrointestinal/Abdominal: Positive for: Normal Exam, Other (well nourished female, no focal tenderness, no masses/rebound/guarding/rigidity, no almendarez's sign, no mcburney's point tenderness) Back: Positive for: Normal Inspection. 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 - Laboratory Results Urine dip results: Positive for: Leukocyte Esterase - ECG O2 Sat by Pulse Oximetry: 98 - Progress ED Course And Treament: pt is doing well 1:30pm - pt is made aware of her medical results pt is asking for bactrim since that worked for her last time pt is encouraged fluids pt will f/u as directed pt will be discharged home Re-evaluation Time: 13:45 Condition: Improved Medical Decision Making Medical Decision Making: Impression: dysuria i have consider all the differential diagnosis regarding pt's chief medical complaints/clinical findings, including but are not limited to: dysuria A/P: dysuria - ua, ucx - observe - supportive care Disposition - Clinical Impression Clinical Impression: Dysuria, UTI (urinary tract infection), General medical exam - Patient ED Disposition Is Patient to be Admitted: No - Disposition Referrals: [facility] [Outside] Disposition: Routine/Home Disposition Time: 13:48 Condition: STABLE Additional Instructions: Make sure to see your doctor in 1-2 days DRINK PLENTY OF FLUIDS take your medications as prescribed RETURN TO ED IF worse pain, cant breath, persistent vomiting, high fever >101- 102 for hours, altered behavior, slurr speech, facial changes, focal weakness ( arm/leg or both), unable to urinate, heavy/persistent bleeding, passing out, chest pain, or other medical emergencies Prescriptions: Phenazopyridine HCl [Pyridium] 100 mg PO TID PRN #5 tablet PRN Reason: Urinary Discomt Sulfamethoxazole/Trimethoprim [Bactrim DS 800 mg-160 mg] 1 tab PO BID #14 tab Forms: [employer] (Italian) Print Language: KENYAN
[2017-07-18 12:42] LABS: SQUAMOUS EPITHIAL 9 /hpf (0-5); URINE AMORPHOUS SEDIMENT RARE /ul (<OCC); URINE BACTERIA OCC (<OCC); URINE BILIRUBIN NEGATIVE (NEGATIVE); URINE BLOOD SMALL (NEGATIVE); URINE CLARITY CLOUDY (Clear); URINE COLOR YELLOW (YELLOW); URINE GLUCOSE (UA) NEG (Normal); URINE LEUKOCYTE ESTERASE TRACE Leu/uL (Negative); URINE PROTEIN NEGATIVE (NEGATIVE); URINE UROBILINOGEN 0.2-1.0 mg/dL (0.2-1.0)
== END 2017-07-18 14:01 | disposition home or self-care (01) ==
LOC: H.ER 10:54
DX: N39.0 Urinary tract infection, site not specified (principal); F20.9 Schizophrenia, unspecified; F32.9 Major depressive disorder, single episode, unspecified

== ENCOUNTER 2017-10-25 10:37 | Emergency (ER) | payer MEDICAID ==
[2017-10-25 11:59] VITALS: BMI 25.2
--- NOTE | 2017-10-25 13:14 | ED PDOC ---
HPI: Female Pain Time Seen by Provider: 10/25/17 11:28 Chief Complaint (Nursing): Female Genitourinary Chief Complaint (Provider): Burning and irritation of the genital region History Per: Patient History/Exam Limitations: no limitations Onset/Duration Of Symptoms: Days Current Symptoms Are (Timing): Still Present Severity: Mild Quality Of Discomfort: Burning, Other (Itchiness ) Associated Symptoms: denies: Vomiting, Loss Of Appetite Additional Complaint(s): 52 yo female with no medical problems presents with itchiness and burning with urination for 2-3 days. Pt denies fever/chills. Pt denies abdominal pain, N/V/ D. PT states that she is having white discharge which is slightly thicker than normal x 1 day. Pt also reports runny nose, yellow. PT states on one occasion there was a small amount of blood in mucous. No facial pain. Abnormal Vaginal Bleeding: No Past Medical History Reviewed: Historical Data, Nursing Documentation, Vital Signs Vital Signs: Last Vital Signs Temp 98 F 10/25/17 12:00 Pulse 77 10/25/17 12:00 Resp 16 10/25/17 12:00 BP 133/84 10/25/17 12:00 Pulse Ox 100 10/25/17 12:00 - Medical History PMH: Depression, Personality Disorder, Schizophrenia Denies: Diabetes, Hepatitis, HIV, HTN, Chronic Kidney Disease, Seizures, Sexually Transmitted Disease - Surgical History Surgical History: No Surg Hx - Family History Family History: States: Unknown Family Hx - Living Arrangements Living Arrangements: Other - Social History Current smoker - smoking cessation education provided: No - Immunization History Hx Tetanus Toxoid Vaccination: Yes (more than 10 years ago) Hx Influenza Vaccination: No Hx Pneumococcal Vaccination: No - Home Medications Home Medications: Ambulatory Orders Medication Instructions Recorded Brompheniramine/Pseudoephed/Dm 10 ml PO Q6 #1 syr 09/09/15 [Bromfed Dm Cough 118 ml] Sulfamethoxazole/Trimethoprim 1 tab PO BID 5 Days tab 06/25/16 [Bactrim DS 800 mg-160 mg] Phenazopyridine [Pyridium] 100 mg PO BID #6 tab 09/08/16 Naproxen [Naprosyn] 500 mg PO BID PRN #15 tablet 09/25/16 Ibuprofen [Motrin Tab] 600 mg PO Q6 PRN #15 tab 10/03/16 Permethrin 5% [Permethrin] 1 appful TP ONCE #1 tube 10/03/16 Phenazopyridine HCl [Pyridium] 100 mg PO BID #10 tablet 10/03/16 Cephalexin [cephalexin] 500 mg PO BID #14 cap 01/01/17 Nitrofurantoin Macrocrystals 100 mg PO BID #10 cap 02/01/17 [Macrobid] Sulfamethoxazole/Trimethoprim 1 tab PO BID #20 tab 02/19/17 [Bactrim DS 800 mg-160 mg] Phenazopyridine HCl [Pyridium] 100 mg PO TID PRN #5 tablet 07/18/17 Sulfamethoxazole/Trimethoprim 1 tab PO BID #14 tab 07/18/17 [Bactrim DS 800 mg-160 mg] Fluconazole [Diflucan] 150 mg PO ONCE #1 tab 10/25/17 - Allergies Allergies/Adverse Reactions: Allergies Allergy/AdvReac Type Severity Reaction Status Date / Time ciprofloxacin Allergy ITCHING Verified 10/25/17 12:05 Review of Systems ROS Statement: Except As Marked, All Systems Reviewed And Found Negative Constitutional: Negative for: Fever Genitourinary Female: Negative for: Dysuria, Frequency Physical Exam - Reviewed Nursing Documentation Reviewed: Yes Vital Signs Reviewed: Yes - Physical Exam Appears: Positive for: Well, Non-toxic, No Acute Distress Head Exam: Positive for: ATRAUMATIC, NORMAL INSPECTION, NORMOCEPHALIC Skin: Positive for: Normal Color, Warm, DRY Eye Exam: Positive for: Normal appearance ENT: Positive for: Normal ENT Inspection Neck: Positive for: Normal, Painless ROM Cardiovascular/Chest: Positive for: Regular Rate, Rhythm Respiratory: Positive for: Normal Breath Sounds. Negative for: Accessory Muscle Use, Respiratory Distress Gastrointestinal/Abdominal: Positive for: Normal Exam, Soft. Negative for: Tenderness Back: Positive for: Normal Inspection Extremity: Positive for: Normal ROM Neurologic/Psych: Positive for: Alert, Oriented - ECG O2 Sat by Pulse Oximetry: 100 Disposition - Clinical Impression Clinical Impression: Vulvovaginal candidiasis - Patient ED Disposition Is Patient to be Admitted: No Counseled Patient/Family Regarding: Diagnosis, Need For Followup, Rx Given - Disposition Disposition: Routine/Home Disposition Time: 14:25 Condition: GOOD Prescriptions: Fluconazole [Diflucan] 150 mg PO ONCE #1 tab Instructions: Yeast Infection (DC) Forms: [employer] (Mozambican)
[2017-10-25 14:18] LABS: RENAL EPITHELIAL 2 /hpf (0-3); SQUAMOUS EPITHIAL 3 /hpf (0-5); URINE AMORPHOUS SEDIMENT RARE /ul (<OCC); URINE BILIRUBIN NEGATIVE (NEGATIVE); URINE BLOOD SMALL (NEGATIVE); URINE CLARITY CLOUDY (Clear); URINE COLOR YELLOW (YELLOW); URINE GLUCOSE (UA) NEG (Normal); URINE LEUKOCYTE ESTERASE TRACE Leu/uL (Negative); URINE PROTEIN 30 mg/dL (NEGATIVE); URINE UROBILINOGEN 0.2-1.0 mg/dL (0.2-1.0)
[2017-10-25 14:41] VITALS: BP 128/78; PULSE 78; RESP 19; TEMP 97; O2SAT 98
== END 2017-10-25 14:42 | disposition home or self-care (01) ==
LOC: H.ER 10:37
DX: B37.3 Candidiasis of vulva and vagina (principal)

== ENCOUNTER 2017-10-31 14:20 | Emergency (ER) | payer MEDICAID ==
[2017-10-31 14:20] VITALS: BMI 25.2
[2017-10-31 14:27] VITALS: BP 106/59; PULSE 88; TEMP 98.7; O2SAT 97
--- NOTE | 2017-10-31 14:34 | ED PDOC ---
HPI: General Adult Time Seen by Provider: 10/31/17 14:32 Chief Complaint (Nursing): Female Genitourinary Chief Complaint (Provider): dysuria, rash to legs History Per: Patient Additional Complaint(s): 52 year old non-domiciled female presents to ED complaining of dysuria ongoing for 2 weeks and also rash to both legs. Patient states that she scratches her legs and creates open wounds with her fingernails. She states she's been doing this for the past few weeks. Patient is concerned about infection. She denies fever or chills, denies any drainage from wounds. Patient states she received tetanus booster last year. PMD; none Past Medical History Reviewed: Historical Data, Nursing Documentation, Vital Signs Vital Signs: Last Vital Signs Temp 98.7 F 10/31/17 14:25 Pulse 88 10/31/17 14:25 Resp BP 106/59 L 10/31/17 14:25 Pulse Ox 97 10/31/17 15:16 - Medical History PMH: No Chronic Diseases, Depression, Personality Disorder, Schizophrenia - Family History Family History: States: No Known Family Hx - Living Arrangements Living Arrangements: Other (non-domiciled) - Social History Current smoker - smoking cessation education provided: No Alcohol: None Drugs: Denies - Home Medications Home Medications: Ambulatory Orders Medication Instructions Recorded Brompheniramine/Pseudoephed/Dm 10 ml PO Q6 #1 syr 09/09/15 [Bromfed Dm Cough 118 ml] Sulfamethoxazole/Trimethoprim 1 tab PO BID 5 Days tab 06/25/16 [Bactrim DS 800 mg-160 mg] Phenazopyridine [Pyridium] 100 mg PO BID #6 tab 09/08/16 Naproxen [Naprosyn] 500 mg PO BID PRN #15 tablet 09/25/16 Ibuprofen [Motrin Tab] 600 mg PO Q6 PRN #15 tab 10/03/16 Permethrin 5% [Permethrin] 1 appful TP ONCE #1 tube 10/03/16 Phenazopyridine HCl [Pyridium] 100 mg PO BID #10 tablet 10/03/16 Cephalexin [cephalexin] 500 mg PO BID #14 cap 01/01/17 Nitrofurantoin Macrocrystals 100 mg PO BID #10 cap 02/01/17 [Macrobid] Sulfamethoxazole/Trimethoprim 1 tab PO BID #20 tab 02/19/17 [Bactrim DS 800 mg-160 mg] Phenazopyridine HCl [Pyridium] 100 mg PO TID PRN #5 tablet 07/18/17 Sulfamethoxazole/Trimethoprim 1 tab PO BID #14 tab 07/18/17 [Bactrim DS 800 mg-160 mg] Fluconazole [Diflucan] 150 mg PO ONCE #1 tab 10/25/17 Clindamycin [Cleocin] 300 mg PO QID #28 cap 10/31/17 Prednisone 50 mg PO DAILY #5 tablet 10/31/17 - Allergies Allergies/Adverse Reactions: Allergies Allergy/AdvReac Type Severity Reaction Status Date / Time ciprofloxacin Allergy ITCHING Verified 10/25/17 12:05 Review of Systems ROS Statement: Except As Marked, All Systems Reviewed And Found Negative Constitutional: Negative for: Fever Genitourinary Female: Positive for: Dysuria Skin: Positive for: Other (scabs to both legs) Physical Exam - Reviewed Nursing Documentation Reviewed: Yes Vital Signs Reviewed: Yes - Physical Exam Appears: Positive for: Well, Non-toxic, No Acute Distress Skin: Positive for: Normal Color, Rash (Multiple excoriated lesions to bilateral lower extremities as well as multiple scabs noted) Eye Exam: Positive for: Normal appearance Cardiovascular/Chest: Positive for: Regular Rate, Rhythm Respiratory: Positive for: Normal Breath Sounds Gastrointestinal/Abdominal: Positive for: Soft. Negative for: Tenderness, Distended, Guarding, Rebound Extremity: Positive for: Normal ROM Neurologic/Psych: Positive for: Alert, Oriented, Gait (steady) - Laboratory Results Urine dip results: Positive for: Blood (moderate). Negative for: Leukocyte Esterase, Nitrate, Ketones, Glucose, Bilirubin, Protein - ECG O2 Sat by Pulse Oximetry: 97 Pulse Ox Interpretation: Normal Medical Decision Making Medical Decision Makin52 year old with dsyuria and mutiple wounds to legs Plan: Urine dip - negative for leukocytes, positive for blood only, culture was sent. Patient was offered empiric treatment for dysuria but she states he has history of frequent UTI's and wants to wait for culture results before starting med. Patient given prescriptions for prednisone and clindamycin for bilateral lower extremity rash. Patient was advise to stop scratching and picking at her skin. Patient was referred to clinic for follow up. Disposition - Clinical Impression Clinical Impression: Infected open wound, Dysuria - Patient ED Disposition Is Patient to be Admitted: No Counseled Patient/Family Regarding: Studies Performed, Diagnosis, Need For Followup, Rx Given - Disposition Referrals: [facility] [Outside] Disposition: Routine/Home Disposition Time: 15:15 Condition: STABLE Additional Instructions: Keep skin clean and dry. Take prescription meds as directed. Follow-up with clinic in 2-3 days Prescriptions: Clindamycin [Cleocin] 300 mg PO QID #28 cap Prednisone 50 mg PO DAILY #5 tablet Instructions: Wound Infection, Dysuria, Adult (DC) Forms: [employer] (Iraqi)
== END 2017-10-31 15:37 | disposition home or self-care (01) ==
LOC: H.ER 14:20
DX: L08.9 Local infection of the skin and subcutaneous tissue, unspecified (principal); R30.0 Dysuria

== ENCOUNTER 2018-02-03 09:02 | Emergency (ER) | payer MEDICAID ==
[2018-02-03 09:03] VITALS: BMI 25.2
[2018-02-03 10:15] LABS: SQUAMOUS EPITHIAL 2 /hpf (0-5); URINE BACTERIA RARE (<OCC); URINE BILIRUBIN NEGATIVE (NEGATIVE); URINE BLOOD NEGATIVE (NEGATIVE); URINE CLARITY SLIGHTY-CLOUDY (Clear); URINE COLOR YELLOW (YELLOW); URINE GLUCOSE (UA) NEG (Normal); URINE LEUKOCYTE ESTERASE NEG Leu/uL (Negative); URINE PROTEIN NEGATIVE (NEGATIVE); URINE UROBILINOGEN 0.2-1.0 mg/dL (0.2-1.0)
--- NOTE | 2018-02-03 10:34 | ED PDOC ---
HPI: Female Pain Time Seen by Provider: 02/03/18 09:21 Chief Complaint (Nursing): Female Genitourinary Chief Complaint (Provider): Female Genitourinary History Per: Patient History/Exam Limitations: no limitations Current Symptoms Are (Timing): Still Present Additional Complaint(s): Johana Myers is a 52 year old with a history of urinary tract infections, who presents to the emergency department complaining of suprapubic pain and dysuria. Patient states she feels like its a UTI, which she gets several times a year. When provider asked about her sore throat that was documented on nurses chart, patient states she gets a throat pain when she eats spicy food which goes away after eating. She states this has been occurring for years. Patient appears to be disheveled with multiple backpacks and flies. Patient was observed to be talking to herself and was unable to provide history for her medications or medical conditions. PMD: No provider Past Medical History Reviewed: Historical Data, Nursing Documentation, Vital Signs Vital Signs: Last Vital Signs Temp 97.9 F 02/03/18 09:19 Pulse 88 02/03/18 09:19 Resp 18 02/03/18 09:19 BP 111/71 02/03/18 09:19 Pulse Ox 100 02/03/18 09:19 - Medical History PMH: Depression, Personality Disorder, Schizophrenia Denies: Diabetes, Hepatitis, HIV, HTN, Chronic Kidney Disease, Seizures, Sexually Transmitted Disease Other PMH: UTI - Surgical History Surgical History: No Surg Hx - Family History Family History: States: Unknown Family Hx - Immunization History Hx Tetanus Toxoid Vaccination: Yes (more than 10 years ago) Hx Influenza Vaccination: No Hx Pneumococcal Vaccination: No - Home Medications Home Medications: Ambulatory Orders Medication Instructions Recorded Brompheniramine/Pseudoephed/Dm 10 ml PO Q6 #1 syr 09/09/15 [Bromfed Dm Cough 118 ml] Sulfamethoxazole/Trimethoprim 1 tab PO BID 5 Days tab 06/25/16 [Bactrim DS 800 mg-160 mg] Phenazopyridine [Pyridium] 100 mg PO BID #6 tab 09/08/16 Naproxen [Naprosyn] 500 mg PO BID PRN #15 tablet 09/25/16 Ibuprofen [Motrin Tab] 600 mg PO Q6 PRN #15 tab 10/03/16 Permethrin 5% [Permethrin] 1 appful TP ONCE #1 tube 10/03/16 Phenazopyridine HCl [Pyridium] 100 mg PO BID #10 tablet 10/03/16 Cephalexin [cephalexin] 500 mg PO BID #14 cap 01/01/17 Nitrofurantoin Macrocrystals 100 mg PO BID #10 cap 02/01/17 [Macrobid] Sulfamethoxazole/Trimethoprim 1 tab PO BID #20 tab 02/19/17 [Bactrim DS 800 mg-160 mg] Phenazopyridine HCl [Pyridium] 100 mg PO TID PRN #5 tablet 07/18/17 Sulfamethoxazole/Trimethoprim 1 tab PO BID #14 tab 07/18/17 [Bactrim DS 800 mg-160 mg] Fluconazole [Diflucan] 150 mg PO ONCE #1 tab 10/25/17 Clindamycin [Cleocin] 300 mg PO QID #28 cap 10/31/17 Prednisone 50 mg PO DAILY #5 tablet 10/31/17 - Allergies Allergies/Adverse Reactions: Allergies Allergy/AdvReac Type Severity Reaction Status Date / Time ciprofloxacin Allergy ITCHING Verified 10/25/17 12:05 Review of Systems ROS Statement: Except As Marked, All Systems Reviewed And Found Negative ENT: Positive for: Throat Pain Gastrointestinal: Positive for: Abdominal Pain (suprapubic pain) Genitourinary Female: Positive for: Dysuria Physical Exam - Reviewed Nursing Documentation Reviewed: Yes Vital Signs Reviewed: Yes - Physical Exam Appears: Positive for: Non-toxic, No Acute Distress Head Exam: Positive for: ATRAUMATIC, NORMOCEPHALIC Skin: Positive for: Normal Color (no cellulitis or swelling), Warm, Dry Eye Exam: Positive for: Normal appearance, EOMI, PERRL ENT: Negative for: Pharyngeal Erythema (or swelling) Neck: Positive for: Normal, Painless ROM, Supple Cardiovascular/Chest: Positive for: Regular Rate, Rhythm. Negative for: Murmur Respiratory: Positive for: Normal Breath Sounds. Negative for: Respiratory Distress Gastrointestinal/Abdominal: Positive for: Tenderness (mild suprapubic tenderness ) Back: Positive for: Normal Inspection. Negative for: L CVA Tenderness, R CVA Tenderness, Vertebral Tenderness Extremity: Positive for: Normal ROM, Other (multiple scabs to distal extremeties). Negative for: Pedal Edema, Deformity Neurologic/Psych: Positive for: Alert, Oriented (x3). Negative for: Motor/Sensory Deficits - ECG O2 Sat by Pulse Oximetry: 100 (RA) Pulse Ox Interpretation: Normal Medical Decision Making Medical Decision Making: Initial Time: 09:36 A/P: Provider impression is UTI. Provider discussed the need for a follow up with PMD for possible gastritis, however patient is asymptomatic at this time. Send UA and reassess patient. Initial Plan: --Motrin 600 mg tab PO --Urinalysis Time: 12:10 No abnormalities on labs and symptoms became resolved after sleeping. Patient has been discharged and return parameters were discussed. Scribe Attestation: Documented by Liang Metzger, acting as a scribe for Erica Yo MD. Provider Scribe Attestation: All medical record entries made by the Scribe were at my direction and personally dictated by me. I have reviewed the chart and agree that the record accurately reflects my personal performance of the history, physical exam, medical decision making, and the department course for this patient. I have also personally directed, reviewed, and agree with the discharge instructions and disposition. Disposition - Clinical Impression Clinical Impression: Genitourinary Pain - Disposition Disposition Time: 12:10 Condition: IMPROVED Additional Instructions: Increase PO hydration. Take Tylenol or Motrin for pain. Follow up with primary medical doctor as needed. Forms: [employer] (Bahraini) Print Language: CROATIAN
[2018-02-03 14:16] VITALS: BP 120/70; PULSE 70; RESP 20; TEMP 98.3; O2SAT 98
== END 2018-02-03 14:16 | disposition home or self-care (01) ==
LOC: H.ER 09:02
DX: N23 Unspecified renal colic (principal); Z86.59 Personal history of other mental and behavioral disorders; Z87.440 Personal history of urinary (tract) infections